=== PATIENT | female | born 1995 | race Caucasian/White ===

== ENCOUNTER → 2020-09-28 16:35 | Outpatient (CLI) | payer BC, SELFPAY ==
[2020-09-28 15:57] VITALS: BMI 31.4
[2020-09-28 17:12] LABS: Absolute Lymphocyte Count 2.09 X10^3/uL (0.83-4.51); Absolute Neutrophil Count 5.1 X10^3/uL (2.0-7.7); Basophil# 0.04 X10^3/uL; Basophil% 0.5 % (0-1); Eosinophil# 0.07 X10^3/uL; Eosinophils% 0.9 % (0-5); Hematocrit 44.2 % (37-47); Hemoglobin 14.8 g/dL (12.0-15.0); Lymphocyte # 2.09 X10^3/ul (4.0); Mean Corp Hgb Conc 33.5 g/dL (32-36); Mean Corpuscular Hgb 30.3 pg (27.0-32.0); Mean Corpuscular Volume 90.4 fL (81-99); Mean Platelet Vol. 11.6 fl (6.2-12.0); Monocyte# 0.45 X10^3/uL; Monocyte% 5.8 % (0-10); NRBC Flagged by Analyzer 0 % (0-5); Neutrophil # 5.07 X10^3/uL (2.7-7.7); Neutrophil % 65.5 % (47-70); Platelet Count 240 K/mm3 (150-450); RBC Distribution Width CV 11.8 % (11.6-14.6); RBC Distribution Width SD 39.1 fl (35.1-43.9); Red Blood Count 4.89 M/mm3 (4.2-5.4); White Blood Count 7.7 K/mm3 (4.4-11.0)
[2020-09-28 17:56] LABS: Anion Gap 6 (5-15); BUN 13 mg/dL (7-18); BUN/Creat Ratio 12.7 RATIO (10-20); Calcium,Total 9.7 mg/dL (8.5-10.1); Chloride 105 mmol/L (98-107); Creatinine, Serum 1.02 mg/dL (0.55-1.02); EST Glomerular Filtration Rate 69 mL/min (>60); Est Glom Filt Rate - Afr Amer 84 mL/min (>60); Glucose 99 mg/dL (74-106); Sodium Level 138 mmol/L (136-145); Thyroid Stim Hormone (TSH) 1.71 uIU/mL (0.358-3.74)
== END ==
PROVIDERS: Referring Provider Internal Medicine Cardiovascular Disease; Visit Provider Internal Medicine Cardiovascular Disease
DX: R00.2 Palpitations (principal)
CPT/HCPCS: 36415; 80048; 84443; 85025

== ENCOUNTER → 2020-10-04 14:45 | Outpatient (CLI) | payer BC, SELFPAY ==
[2020-09-28 15:57] VITALS: BMI 31.4
--- NOTE | 2020-10-04 14:46 | ECHOD_ITS ---
Version 2 Reason For Study: ARRHYTHMIA Procedure This was a 2D Doppler, Color Flow transthoracic echocardiogram. Exam performed in department. Left Ventricle Normal LV size. Left ventricular systolic function is normal. The estimated ejection fraction is 65 %. No regional wall motion abnormalities noted. Right Ventricle Normal RV size. Normal systolic function. Atria Normal left atrium. Normal right atrium. Mitral Valve Normal mitral valve. Tricuspid Valve Normal tricuspid valve. Aortic Valve Normal aortic valve. Trisinus/trileaflet aortic valve. Pulmonic Valve Normal pulmonic valve. Great Vessels Normal aortic root. The pulmonary artery is normal size. Normal inferior vena cava. Pericardium/Pleural No pericardial effusion. MMode/2D Measurements & Calculations LVIDd: 4.7 cm IVSd: 0.87 cm Ao root diam: 2.4 cm LVIDs: 3.0 cm LVPWd: 0.87 cm RVDd: 3.8 cm FS: 36.5 % LAV(MOD-bp): 45.4 ml LA A4 area: 16.6 cm2 LA dimension(2D): 3.4 cm LAV(MOD-bp) Indexed: 24.1 ml/m2 LAV(MOD-sp2): 42.5 ml LAV(MOD-sp4): 45.3 ml RA A4 area: 13.7 cm2 Time Measurements MV dec time: 0.20 sec Doppler Measurements & Calculations MV E max elie: 116.3 cm/sec Lat Peak E' Elie: 21.4 cm/sec Med Peak E' Elie: 17.2 cm/sec MV A max elie: 76.1 cm/sec E/E' lat: 5.4 E/E' med: 6.8 MV E/A: 1.5 Ao V2 max: 155.2 cm/sec LV V1 max: 144.8 cm/sec PA V2 max: 137.5 cm/sec Ao max P.6 mmHg LV V1 max P.4 mmHg Interpretation Summary Normal LV size. Left ventricular systolic function is normal. The estimated ejection fraction is 65 %. Structurally normal valves. Ordering Physician: Hermes Benitez Referring Physician: NO PCP Performed By: Greer Galan RDCS, RVT
== END ==
PROVIDERS: Referring Provider Internal Medicine Cardiovascular Disease; Visit Provider Internal Medicine Cardiovascular Disease
DX: R00.2 Palpitations (principal)
CPT/HCPCS: 93306

== ENCOUNTER 2021-09-11 17:24 | Outpatient (CLI) | payer BC, SELFPAY ==
--- NOTE | 2021-09-11 17:24 | MRI_ITS ---
STUDY: MRI RIGHT KNEE REASON FOR EXAM: Female, 26 years old. right anterior T lateral knee pain, unable to bear weight, trampoline injury TECHNIQUE: Standardized fat and water weighted pulse sequences were obtained in all 3 orthogonal planes. COMPARISON: X-ray of the right knee dated September 11, 2021 FINDINGS: Mild marrow edema/acute bony contusions are present at the anterior aspect of the lateral femoral condyle and posterior aspect of the lateral tibial plateau. The anterior cruciate ligament is completely torn. A small joint effusion is present, and mild to moderate subcutaneous edema is seen around the knee joint. Mild sprain injuries of several of the posterior upper calf muscles also demonstrated. Normal medial meniscus. Normal hyaline cartilage of the medial femorotibial compartment. Normal medial femoral condyle and tibial plateau. Normal medial collateral ligamentous complex (MCL). Normal distal semimembranosus, gracilis and semitendinosus tendons. Complex extensive tearing is seen in the mid to inner aspect of the posterior horn of lateral meniscus including the root insertion. Normal anterior horn and body of the lateral meniscus. Normal hyaline cartilage of the lateral femorotibial compartment. Normal lateral femoral condyle and tibial plateau. Normal proximal tibiofibular articulation. Normal lateral collateral (fibular) ligament. Normal popliteus tendon. Normal biceps femoris tendon. Normal posterior cruciate ligament (PCL). Normal congruent patellofemoral articulation. Normal hyaline cartilage of the patellofemoral compartment. Normal medial and lateral patellar retinaculum. Normal quadriceps tendon. Normal patellar tendon. Normal Hoffa''s fat pad. MRI/Lower Ext Joint Only (Routine) IMPRESSION: 1. Complete tear of the ACL 2. Complex extensive tearing is seen in the mid to inner aspect of the posterior horn of lateral meniscus including the root insertion. 3. Mild marrow edema/acute bony contusions are present at the anterior aspect of the lateral femoral condyle and posterior aspect of the lateral tibial plateau. 4. A small joint effusion is present, and mild to moderate subcutaneous edema is seen around the knee joint. 5. Mild sprain injuries of several of the posterior upper calf muscles also demonstrated. Electronically Signed: Reg Sebastian MD at 20:31 EST , Service support ,
== END 2021-09-11 23:59 | disposition short-term general hospital (02) ==
LOC: MRI 17:24
PROVIDERS: Visit Provider Orthopaedic Surgery
DX: S89.91XA Unspecified injury of right lower leg, initial encounter (principal); S83.519A Sprain of anterior cruciate ligament of unspecified knee, initial encounter
CPT/HCPCS: 73721

== ENCOUNTER 2021-09-29 14:24 | Outpatient (CLI) | payer BC, SELFPAY | END 2021-09-29 23:59 | disposition home or self-care (01) | PROVIDERS: Visit Provider Orthopaedic Surgery | DX: Z01.812 Encounter for preprocedural laboratory examination (principal); M23.91 Unspecified internal derangement of right knee | CPT/HCPCS: 87635; C9803; U0003; U0005 ==

== ENCOUNTER 2022-03-15 11:00 | Outpatient (RCR) | payer BC, SELFPAY ==
--- NOTE | 2021-09-19 14:53 | HP.PTEVAL_ITS ---
Patient's Visit Information ARSALAN BUSH is a 26 year old F referred to Physical Therapy by ERMELINDA TOWNSEND with a diagnosis of R ACL tear, lateral medial meniscus tear.. Date of Evaluation: 09/19/21 Physical Therapist: Vega Finley, DPT, OCS, CSCS - Visit Plan Frequency: 2-3x /Week Duration: 2-4 Weeks Plan: 2-3x/week x2-4 weeks. inhibitory massage to quad and HS. A/PROM to R knee and patellar mobs.Stretch HS and quad as able. NWB strengthening to HEP. Pt is now NWB R. Get ready for surgery 10/04. Use Vaso if swollena dn ice as needed. - Subjective R knee injury from trampoline park injury on 09/09/21. It buckled on her on a rebounding trampoline. Hurt and swelled up immediately. Will have surgery 10/04 with meniscal repairs and ACL repair with patellar tendon. Nees more ROM for surgery. Is NWB R with crutches. Not too painful at rest, Needs more ROM. Using crutches are fine. Two steps with railing and getting up and down them fine. trasnfers out of bed are painful. Sleeping is decent. Not too painful until she moves. immobllizer at night. Works at [employer]. Enjoys biking hiking and swimming when healthy. Exercises , ext adn flexion ROM. QS. Walking 3x/week is exercise when healthy - Pain R knee pain. Pain Intensity (Out of 10): 0 Pain Intensity Range: 0, 5 - Objective NWB R knee with brace on and crutches ambulating mod I into PT. Transfers bed and chair I helping R LE with UE. Dons and doffs brace I. - homans B. ankle aROM WFL and strength Df 5/5. Knee AROM R knee -4 to 60 supine and 70 in sitting, limited by pain and tension anterior knee. patella mobility slightly at deficit R vs L. SLR has 3 degree ext lag on R. Swelling is minimal on R LE and at knee joint. Tender to palpation R lateral joint line. - Balance/Special Test Scores Lower Extremity Functional Score: 7 - Goals Goal 1:: 0-130 AROM R knee without pain to be prepared for surgery Goal Time Frame: 2-4 Weeks Goal 2:: I appropriate HEP for strength and ROM Goal Time Frame: 2-4 Weeks - Rehabilitation Potential Physical Therapy Diagnosis: R knee ACL tear and meniscus injury with limited ROM needing to prepare for surgery. Rehabilitation Potential: Fair - Anticipated Interventions Patient/Client Instruction: Educate patient on: Condition, Plan of Care For the Purpose of:: To decrease pain, To increase ROM, To improve muscle performance and motor function Therapeutic Exercise to Include: Strength training, Flexibilty training, Passive ROM, Active ROM For the Purpose of:: To decrease pain, To increase ROM, To improve nutrient delivery to tissue, To improve muscle performance and motor function Manual Therapy Techniques to Include: Mobilization, Passive ROM, Soft tissue mobilization For the Purpose of:: To decrease pain, To increase ROM TENS: Yes Cryotherapy (ice pack, ice massage): Yes Vasopneumatic device: Yes For the Purpose of:: To decrease pain, To decrease swelling/inflammation, To increase ROM Thank you for the opportunity to evaluate your patient. For Medicare and Medicare HMO plans, please review the plan of care and approve it. It will need to be FAXED BACK to us at [phone] for Medicare purposes. For Medicare only, by signing this I certify the plan of care. Please let me know if there are questions or concerns regarding this plan of care. Physician Signature: Date:
--- NOTE | 2021-10-03 12:08 | HP.PTREVAL_ITS ---
ERMELINDA TOWNSEND, It has been my pleasure to treat ARSALAN BUSH over the last 5 visits for R ACL tear, lateral medial meniscus tear.. Please see the progress note below for an update on the physical therapy plan of care! Subjective: Hurts only to bend it. Has been doing NWB on crutches. Objective/Function: 0-91 ROM R knee after stretching today, limited by muscle spasm anterior pain, not really any other end feel. Walking NWB R with crutches I today. Overall doing well except for flexion ROM which is limited by muscle spasms and pain anteriorly seemingly something blocking her motion pain carty. Plan Plan: Reeval postsurgically as ordered. Likely on saturday next week, surgery is tomorrow. Balance/Gait/Functional tests - Balance/Special Test Scores Lower Extremity Functional Score: 7 Goals Goal 1:: 0-130 AROM R knee without pain to be prepared for surgery Goal Time Frame: 2-4 Weeks Goal Progress: 0-91 today. Goal 2:: I appropriate HEP for strength and ROM Goal Time Frame: 2-4 Weeks Goal Progress: Goal Met Anticipated Interventions Patient/Client Instruction: Educate patient on: Condition, Plan of Care For the Purpose of:: To decrease pain, To increase ROM, To improve muscle perfor zhang and motor function Therapeutic Exercise to Include: Strength training, Flexibilty training, Passive ROM, Active ROM For the Purpose of:: To decrease pain, To increase ROM, To improve nutrient delivery to tissue, To improve muscle performance and motor function Manual Therapy Techniques to Include: Mobilization, Passive ROM, Soft tissue mobilization For the Purpose of:: To decrease pain, To increase ROM TENS: Yes Cryotherapy (ice pack, ice massage): Yes Vasopneumatic device: Yes For the Purpose of:: To decrease pain, To decrease swelling/inflammation, To increase ROM Please do not hesitate to contact me at [phone] by phone or if you have questions or concerns regarding this new plan of care! Sincerely, Vega Finley, DPT, OCS, CSCS
--- NOTE | 2021-10-09 10:15 | HP.PTREVAL ---
ERMELINDA TOWNSEND, It has been my pleasure to treat ARSALAN BUSH over the last 6 visits for s/p R ACL repair and meniscal repair 10/05/21. Please see the progress note below for an update on the physical therapy plan of care! Subjective: Pt had ACL reconstruction and meniscal repair on 10/04/21. Pain has been constantly 6/10 over weekend, 4/10 at rest. Very bad first two days and was sick right after surgery. Got new script but forgot it. Is NWB x 4 weeks on crutches . Will see doctor in two weeks. is doing seated bag hang to get extension. Locked brace ambulation and seating. Can go up to 90 degrees NWB. got 120 in surgery of flexion. Objective/Function: Pt is painful upon arrival and miserable for the weekend. Walking NWB R brace locked in ext I. transfers I moving R LE with arms. Painful to try to bend or lift R LE. Swelling is not bad and near symmetrical at the joint line and smaller on R at calf bu 1/4 inch. AROM -8 to 32 degrees R knee with assist, muscle spasming limiting motion and painful. Ankle and Hip ROM WNL B. - homans. SLR abd able,. SLr flexion unable and needed mod A. patella R stiff vs L. Incisions dressed appropriately, dry and healing well. Overall patient looks good objectively outside of limited ROM and painful since surgery 5 days ago. Plan Plan: 3x/week for 6-8 weeks. Patellar mobs. AAROM/PROM to 90. NWB strength hip and knee per protocol from [facility] in protocol folder. Currently NWB with brace locked for mobility and at night and unlocked when sitting. Please do TENS until pain better than FES to quad, VASO if swelling increases and Ice as needed(pt has ice machine at home) Balance/Gait/Functional tests - Balance/Special Test Scores Lower Extremity Functional Score: 7 Goals Goal 1:: ST:0-90 AROM over 6 weeks per prptocol without pain Goal Time Frame: 4-6 Weeks Goal Progress: 0-91 today. Goal 2:: ST: patient painfree and sleeping well Goal Time Frame: 2-4 Weeks Goal Progress: Goal Met Goal 3:: LT: Walk when allowed without gait deficits in community Goal Time Frame: 8-12 Weeks Goal 4:: Steps reciprocally without rail Goal Time Frame: 8-12 Weeks Goal 5:: Patient feel 90% back to normal activites Goal Time Frame: 8-12 Weeks Goal 6:: I management of ex to continue progress on own. Goal Time Frame: 8-12 Weeks Anticipated Interventions Patient/Client Instruction: Educate patient on: Condition, Plan of Care For the Purpose of:: To decrease pain, To increase ROM, To improve muscle performance and motor function Therapeutic Exercise to Include: Strength training, Flexibilty training, Passive ROM, Active ROM For the Purpose of:: To decrease pain, To increase ROM, To improve nutrient delivery to tissue, To improve muscle performance and motor function Manual Therapy Techniques to Include: Mobilization, Passive ROM, Soft tissue mobilization For the Purpose of:: To decrease pain, To increase ROM Functional electric stimulation: Yes TENS: Yes Cryotherapy (ice pack, ice massage): Yes Vasopneumatic device: Yes For the Purpose of:: To decrease pain, To decrease swelling/inflammation, To increase ROM Please do not hesitate to contact me at [phone] by phone or if you have questions or concerns regarding this new plan of care! Sincerely, Vega Finley, DPT, OCS, CSCS
--- NOTE | 2021-11-03 12:44 | HP.PTREVAL ---
ERMELINDA TOWNSEND, It has been my pleasure to treat ARSALAN BUSH over the last 17 visits for s/p R ACL repair and meniscal repair 10/05/21. Please see the progress note below for an update on the physical therapy plan of care! Subjective: Doing OK, very busy yesterday and stuck sitting at work a lot of the day. Objective/Function: 0-88 AROM and 92 PROM after session, getting a quad contrasction but still lag with SLR by about 3 degrees. NWB ambulation Plan Plan: progress stadn ex to HEP, continue ROM ext and NWB quad strength to [place]. still NWB ambulation and appropriate to continue 4 more weeks toward goals. Fair prognosis Balance/Gait/Functional tests - Balance/Special Test Scores Lower Extremity Functional Score: 7 Goals Goal 1:: ST:0-90 AROM over 6 weeks per prptocol without pain Goal Time Frame: 4-6 Weeks Goal Progress: Goal Met Goal 2:: ST: patient painfree and sleeping well Goal Time Frame: 2-4 Weeks Goal Progress: approp. Goal 3:: LT: Walk when allowed without gait deficits in community Goal Time Frame: 8-12 Weeks Goal 4:: Steps reciprocally without rail Goal Time Frame: 8-12 Weeks Goal 5:: Patient feel 90% back to normal activites Goal Time Frame: 8-12 Weeks Goal 6:: I management of ex to continue progress on own. Goal Time Frame: 8-12 Weeks Anticipated Interventions Patient/Client Instruction: Educate patient on: Condition, Plan of Care For the Purpose of:: To decrease pain, To increase ROM, To improve muscle performance and motor function Therapeutic Exercise to Include: Strength training, Flexibilty training, Passive ROM, Active ROM For the Purpose of:: To decrease pain, To increase ROM, To improve nutrient delivery to tissue, To improve muscle performance and motor function Manual Therapy Techniques to Include: Mobilization, Passive ROM, Soft tissue mobilization For the Purpose of:: To decrease pain, To increase ROM Functional electric stimulation: Yes TENS: Yes Cryotherapy (ice pack, ice massage): Yes Vasopneumatic device: Yes For the Purpose of:: To decrease pain, To decrease swelling/inflammation, To increase ROM Please do not hesitate to contact me at [phone] by phone or if you have questions or concerns regarding this new plan of care! Sincerely, Vega Finley, DPT, OCS, CSCS
--- NOTE | 2021-12-01 13:15 | HP.PTREVAL ---
ERMELINDA TOWNSEND, It has been my pleasure to treat ARSALAN BUSH over the last 29 visits for s/p R ACL repair and meniscal repair 10/05/21. Please see the progress note below for an update on the physical therapy plan of care! Subjective: Saw doctor who was not impressed with flexion or extension. Will f/u in two weeks. And possible manip. Will get a dynasplint and doctor is ordering. Wants therapy to continue 3x/week for 4 weeks. Objective/Function: 0-108 AROM today after session. Full knee extension upon standing immediately today but default was to keep it bent until cued. Lacks knee flexion at swing until cued. Steps are reciprocal up and down when cued with rails, obvious weakness coming down with R but not a lot of pain. Overall doing much better with function, slowly improving ROM and stiffens up quickly, needs more ROM and to be stronger. Plan Plan: 3x/week for 4-6 weeks for. 1. Pt to do strength at home and can ;rogress it verbally. 2. Focus on methods to increase knee ext and flexion ROM and looseness. rollout quad and HS, patellar mobs, PROM, quad and HS stretching, exercises for ROM flexion and extension. Good prognosis for continued improvement. Balance/Gait/Functional tests - Balance/Special Test Scores Lower Extremity Functional Score: 33 Goals Goal 1:: 0-125 aROM to help normalize healing process. Goal Time Frame: 2-4 Weeks Goal Progress: NEW GOAL Goal 2:: ST: patient painfree and sleeping well Goal Time Frame: 2-4 Weeks Goal Progress: approp. Goal 3:: LT: Walk when allowed without gait deficits in community Goal Time Frame: 8-12 Weeks Goal Progress: Progressing, approp Goal 4:: Steps reciprocally without rail Goal Time Frame: 8-12 Weeks Goal Progress: progressing, needs rail Goal 5:: Patient feel 90% back to normal activites Goal Time Frame: 8-12 Weeks Goal Progress: Progressing Goal 6:: I management of ex to continue progress on own. Goal Time Frame: 8-12 Weeks Goal Progress: needs help with ROM Anticipated Interventions Patient/Client Instruction: Educate patient on: Condition, Plan of Care For the Purpose of:: To decrease pain, To increase ROM, To improve muscle performance and motor function Therapeutic Exercise to Include: Strength training, Flexibilty training, Passive ROM, Active ROM For the Purpose of:: To decrease pain, To increase ROM, To improve nutrient delivery to tissue, To improve muscle performance and motor function Manual Therapy Techniques to Include: Mobilization, Passive ROM, Soft tissue mobilization For the Purpose of:: To decrease pain, To increase ROM Functional electric stimulation: Yes TENS: Yes Cryotherapy (ice pack, ice massage): Yes Vasopneumatic device: Yes For the Purpose of:: To decrease pain, To decrease swelling/inflammation, To increase ROM Please do not hesitate to contact me at [phone] by phone or if you have questions or concerns regarding this new plan of care! Sincerely, Vega Finley, DPT, OCS, CSCS
--- NOTE | 2022-01-01 13:48 | HP.PTREVAL ---
ERMELINDA TOWNSEND, It has been my pleasure to treat ARSALAN BUSH over the last 40 visits for s/p R ACL repair and meniscal repair 10/05/21. Please see the progress note below for an update on the physical therapy plan of care! Subjective: Doing well. doctor happy and no [id number] needed. No pain today. Worked outside and even on uneven surfaces over the3 weekend. doc wants 4 more weeks of rOM and then done. Objective/Function: PROM. Walking well today, after session 0-124 R and left is to 136. Lunging shows weakness R quad and awkward but able with Hand rail assist. Steps reciprocal without rails. Overall doing well back to mostly normal ADLs. Wants to work toward four wheeling, hiking, jogging and video mworkout(burpees, mountain climbers etc). LEFS is therapist graded based on patient report. Plan Plan: 2x/week for 4 week for continued manual until ROM is full. functional progression with jogging as tolerated, side shuiffle, gentl plyo(shuttle) and functional burpees, mountain climbers, step aerobics etc for confidence. NEW GOAL4 weeks). 1. Gain confidence to ride 4 goode, jog gently and do video workout I without pain. Balance/Gait/Functional tests - Balance/Special Test Scores Lower Extremity Functional Score: 56 Goals Goal 1:: 0-125 aROM to help normalize healing process. Goal Time Frame: 2-4 Weeks Goal Progress: near met Goal 2:: ST: patient painfree and sleeping well Goal Time Frame: 2-4 Weeks Goal Progress: Goal Met Goal 3:: LT: Walk when allowed without gait deficits in community Goal Time Frame: 8-12 Weeks Goal Progress: Goal Met Goal 4:: Steps reciprocally without rail Goal Time Frame: 8-12 Weeks Goal Progress: Goal Met Goal 5:: Patient feel 90% back to normal activites Goal Time Frame: 8-12 Weeks Goal Progress: 65% approp Goal 6:: I management of ex to continue progress on own. Goal Time Frame: 8-12 Weeks Goal Progress: Goal Met Anticipated Interventions Patient/Client Instruction: Educate patient on: Condition, Plan of Care For the Purpose of:: To decrease pain, To increase ROM, To improve muscle performance and motor function Therapeutic Exercise to Include: Strength training, Flexibilty training, Passive ROM, Active ROM For the Purpose of:: To decrease pain, To increase ROM, To improve nutrient delivery to tissue, To improve muscle performance and motor function Manual Therapy Techniques to Include: Mobilization, Passive ROM, Soft tissue mobilization For the Purpose of:: To decrease pain, To increase ROM Functional electric stimulation: Yes TENS: Yes Cryotherapy (ice pack, ice massage): Yes Vasopneumatic device: Yes For the Purpose of:: To decrease pain, To decrease swelling/inflammation, To increase ROM Please do not hesitate to contact me at [phone] by phone or if you have questions or concerns regarding this new plan of care! Sincerely, Vega Finley, DPT, OCS, CSCS
--- NOTE | 2022-01-29 14:02 | HP.PTREVAL_ITS ---
ERMELINDA TOWNSEND, It has been my pleasure to treat ARSALAN BUSH over the last 48 visits for s/p R ACL repair and meniscal repair 10/05/21. Please see the progress note below for an update on the physical therapy plan of care! Subjective: Sore and stiff after being on feet all weekend. Otherwise has been good. Riding 4 goode gently, working out in yard. Doing HEP regularly. Upper level activities and ROM still need work but doing well otherwise. Objective/Function: 30 # R quad strength vs 60# L. HS strength 39#R and 65#L. AROM 0-121 today but is sore and stiff today after being on feet much of weekend, has gotten to 125 AROM in past. patella still slightly stiff R vs L inferior and superior glides. Full extension is pretty easy to achieve, Still weak in quad but working on this with HEP and in gym 4-5x/week. Steps are antalgic today but typically have been good and reciprocal and only needing railing for confidence. has been jogging short distances in therapy but labored and hesitant with R LE WB with activities more aggressive than walking/steps. Can side shuffle and caarioca slowly and gaining confidence in these movements. SLH still not funcitonal on R, double leg hop looks more symmetrical. overall good improvement on ROM , strength R quad still lacking and plyo and agility/jogging movements till hard for patient and require more strength which she is working on. Plan Plan: Weekly x6 weeks to continue ROM/manual and progress agility/plyo as appropriate for patient. She will continue strengthening I on own and ask questions if concerns with these. Goals appropriate and fair prognosis for slow improvement Balance/Gait/Functional tests - Balance/Special Test Scores Lower Extremity Functional Score: 54 Goals Goal 1:: 0-125 aROM to help normalize healing process. Goal Time Frame: 2-4 Weeks Goal Progress: Goal Met Goal 2:: 1. Gain confidence to ride 4 goode, jog gently and do video workout I without pain. Goal Time Frame: 4-6 Weeks Goal Progress: barely started these., ap Goal 3:: 70/80 LEFS Goal Time Frame: 4-6 Weeks Goal Progress: NEW GOAL Goal 4:: 50+ quad strength R and 60 HS strength R to hand dyno test. Goal Time Frame: 4-6 Weeks Goal Progress: NEW GOAL Goal 5:: Patient feel 90% back to normal activites Goal Time Frame: 8-12 Weeks Goal Progress: 70% Goal 6:: jog without hesitation or antalgia Goal Time Frame: 4-6 Weeks Goal Progress: NEW GOAL Anticipated Interventions Patient/Client Instruction: Educate patient on: Condition, Plan of Care For the Purpose of:: To decrease pain, To increase ROM, To improve muscle performance and motor function Therapeutic Exercise to Include: Strength training, Flexibilty training, Passive ROM, Active ROM For the Purpose of:: To decrease pain, To increase ROM, To improve nutrient delivery to tissue, To improve muscle performance and motor function Manual Therapy Techniques to Include: Mobilization, Passive ROM, Soft tissue mobilization For the Purpose of:: To decrease pain, To increase ROM Functional electric stimulation: Yes TENS: Yes Cryotherapy (ice pack, ice massage): Yes Vasopneumatic device: Yes For the Purpose of:: To decrease pain, To decrease swelling/inflammation, To increase ROM Please do not hesitate to contact me at [phone] by phone or Fax: if you have questions or concerns regarding this new plan of care! Sincerely, Vega Finley, DPT, OCS, CSCS
--- NOTE | 2022-03-08 12:56 | HP.PTREVAL ---
ERMELINDA TOWNSEND, It has been my pleasure to treat ARSALAN BUSH over the last 54 visits for s/p R ACL repair and meniscal repair 10/05/21. Please see the progress note below for an update on the physical therapy plan of care! Subjective: patient says that patella is getting sore with LAQ and the day after. otherwise doing well and getting stronger, still needs help with plyo, agility progression, ROM still feels better in WB after manual and PROM stooping. Objective/Function: 0-129 AROM R knee, o-131 AROM prior to manual then 133 after. L knee AROM 0-135. Stooping much more symmetrical than a month ago but still some discomfort and hesitation to R WB. hesitant to bend knee due to poor confidence in R quad. Improving strength but slow. Appropriate for new goals and fair prognosis. Plan Plan: Continue weekly x 6 weeks to end March to ensure adn progress quad strength without soreness. progress plyo and agility to tolerance adn ensure quad use. Manual each session until stoop is symmetrical. Balance/Gait/Functional tests - Balance/Special Test Scores Lower Extremity Functional Score: 71 Goals Goal 1:: Agility drills with R knee flexion without VC and single leg jump R clearing floor. Stoop without asymmetry Goal Time Frame: 4-6 Weeks Goal Progress: NEW GOAL Goal 2:: 1. Gain confidence to ride 4 goode, jog gently and do video workout I without pain. Goal Time Frame: 4-6 Weeks Goal Progress: Goal Met Goal 3:: 70/80 LEFS Goal Time Frame: 4-6 Weeks Goal Progress: Goal Met Goal 4:: 50+ quad strength R and 60 HS strength R to hand dyno test. Goal Time Frame: 4-6 Weeks Goal Progress: Progressing Goal 5:: Patient feel 90% back to normal activites Goal Time Frame: 8-12 Weeks Goal Progress: 75 Goal 6:: jog without hesitation or antalgia Goal Time Frame: 4-6 Weeks Goal Progress: Goal Met Anticipated Interventions Patient/Client Instruction: Educate patient on: Condition, Plan of Care For the Purpose of:: To decrease pain, To increase ROM, To improve muscle performance and motor function Therapeutic Exercise to Include: Strength training, Flexibilty training, Passive ROM, Active ROM For the Purpose of:: To decrease pain, To increase ROM, To improve nutrient delivery to tissue, To improve muscle performance and motor function Manual Therapy Techniques to Include: Mobilization, Passive ROM, Soft tissue mobilization For the Purpose of:: To decrease pain, To increase ROM Functional electric stimulation: Yes TENS: Yes Cryotherapy (ice pack, ice massage): Yes Vasopneumatic device: Yes For the Purpose of:: To decrease pain, To decrease swelling/inflammation, To increase ROM Please do not hesitate to contact me at [phone] by phone or if you have questions or concerns regarding this new plan of care! Sincerely, Vega Finley, DPT, OCS, CSCS
== END 2022-03-15 19:00 | disposition home or self-care (01) ==
LOC: PT 11:00
DX: Z47.89 Encounter for other orthopedic aftercare (principal); S83.511D Sprain of anterior cruciate ligament of right knee, subsequent encounter; S83.281D Other tear of lateral meniscus, current injury, right knee, subsequent encounter; S83.241D Other tear of medial meniscus, current injury, right knee, subsequent encounter; X58.XXXD Exposure to other specified factors, subsequent encounter; M23.91 Unspecified internal derangement of right knee
CPT/HCPCS: 97014; 97016; 97110; 97140; 97161; 97164; G0283

== ENCOUNTER 2022-06-29 12:00 | Outpatient (RCR) | payer BC, SELFPAY ==
--- NOTE | 2022-04-05 12:45 | HP.PTREVAL_ITS ---
ERMELINDA TOWNSEND MD, It has been my pleasure to treat ARSALAN BUSH over the last 58 visits for s/p R ACLrepair and meniscal repair 10/05/21. Please see the progress note below for an update on the physical therapy plan of care! Subjective: No discomfort today. Next is doctor appointment. Doing well functionally, intermittent c/o discomfort and popping under R knee cap is her main concern. Stooping getting easier slowly. Objective/Function: much better SLH today. double leg hop symmetry is good at takeoff but lans on L foot every time even wiht VC. Prt appropriately lacks confidence in R LE but it is getting stronger as evidence with SL hop improvements. Walking well. Limps on jog when leg is tired. Funciton overall is very good outside of very high level activities like hopping and cuttiing/sprinting which has not started. overall concerns are popping and intermittent discomfort with patella in R, stooping still painful, quad taking longeer to strengthen then expected. Plan Plan: [facility] next week[facility] and has 2 more therapy visits scheduled weekly for progressions. Goals Goal 1:: Agility drills with R Knee flexion without VC and single leg jump R clearing floor, stoop without asymmetry Goal Time Frame: 4-6 Weeks Goal 2:: 50+ quad strength R and 60 HS strength to hand dyno test Goal Time Frame: 4-6 Weeks Goal 3:: Patient feel 90% back to normal activity Goal Time Frame: 4-6 Weeks Anticipated Interventions Patient/Client Instruction: Educate patient on: Condition For the Purpose of:: To improve muscle performance and motor function, To increase tolerance to activity/condition/position Therapeutic Exercise to Include: Strength training, Endurance training, Agility training, Flexibilty training, Passive ROM, Active ROM For the Purpose of:: To decrease pain, To increase ROM, To improve muscle performance and motor function, To increase tolerance to activity/condition/position, To improve ability of physical actions for home/community/work/leisure Manual Therapy Techniques to Include: Mobilization, Soft tissue mobilization For the Purpose of:: To increase ROM Please do not hesitate to contact me at [phone] by phone or if you have questions or concerns regarding this new plan of care! Sincerely, Vega Tushar, DPT, OCS, CSCS
--- NOTE | 2022-04-19 12:57 | HP.PTEVAL ---
Patient's Visit Information ARSALAN BUSH is a 27 year old F referred to Physical Therapy by ERMELINDA TOWNSEND MD with a diagnosis of s/p R ACLrepair and meniscal repair 10/05/21. Date of Evaluation: Physical Therapist: Vega Finley, DPT, OCS, CSCS - Visit Plan Plan: every two weeks to progress quad exedrcises as needed. Pt back to doctor in [facility]. Check quad and HS strength with dynomomoeter. Progress quad strength if needed. - Goals Goal 1:: Agility drills with R Knee flexion without VC and single leg jump R clearing floor, stoop without asymmetry Goal Time Frame: 4-6 Weeks Goal 2:: 50+ quad strength R and 60 HS strength to hand dyno test Goal Time Frame: 4-6 Weeks Goal 3:: Patient feel 90% back to normal activity Goal Time Frame: 4-6 Weeks - Anticipated Interventions Patient/Client Instruction: Educate patient on: Condition For the Purpose of:: To improve muscle performance and motor function, To increase tolerance to activity/condition/position Therapeutic Exercise to Include: Strength training, Endurance training, Agility training, Flexibilty training, Passive ROM, Active ROM For the Purpose of:: To decrease pain, To increase ROM, To improve muscle performance and motor function, To increase tolerance to activity/condition/position, To improve ability of physical actions for home/community/work/leisure Manual Therapy Techniques to Include: Mobilization, Soft tissue mobilization For the Purpose of:: To increase ROM Thank you for the opportunity to evaluate your patient. For Medicare and Medicare HMO plans, please review the plan of care and approve it. It will need to be FAXED BACK to us at [phone] for Medicare purposes. For Medicare only, by signing this I certify the plan of care. Please let me know if there are questions or concerns regarding this plan of care. Physician Signature: Date:
--- NOTE | 2022-06-29 12:28 | HP.PTDCSUM_ITS ---
It has been my pleasure to treat ARSALAN BUSH referred by ERMELINDA TOWNSEND MD, with the diagnosis of s/p R ACLrepair and meniscal repair 10/05/21 for a total of 64 visit(s). Discharge Date: Please see the following information for a summary of their discharge status. Subjective: Has been very busy and less workout over the last week. pain no different whether working out or not. Sometimes cannot straighten knee in sitting wihtou pain and other days not a problem. Still much weaker on R quad especially moid range. Still avoids it with squat and hard to jump single leg. Can jog but limited R LE strength and confidence. Saw PA and offered antiinflammatories but no indication what pain may be from. Will go to [place] for vacation next couple weeks then see surgeon [id number] returning. % Improvement: 75 Objective/Function: aROM 0-140 and symmetircal with opposite side outside of full flexion WB discomfort. Painful arc of resisted quad between 20 and 40 degrees flexed. strength quad 35# at 0 ext and 90 flexion but only 18 at 25 flexion. HS strength 65#. girth is 27 R and 27.5 L at 6 inch above quad. B 17 inches at joint line. Walks normal. Jogs avoiding flexing R knee but I. squat and double leg hop avoids R WB obviously. SLH R holding on is difficult and tends to just use ankle, unable to get air without holding on. L hop is good. Overall, pt is not coming along as would expect despite working hard at strengthening. ROM took a long time to return and strength is ever so slowly improving in quad but still very painful at 25 degree flexion. Recommend patient to surgeon to see if there could be a reason for this as it is not a normal finding. Goal 1:: Agility drills with R Knee flexion without VC and single leg jump R clearing floor, stoop without asymmetry Goal Progress: Goal Met Goal 2:: 50+ quad strength R and 60 HS strength to hand dyno test Goal Progress: Not Progressing Goal 3:: Patient feel 90% back to normal activity Goal Progress: Not Progressing Plan: d/c, pt to see surgeon in a few weeks and should be sent back if specific instructions for other PT, otherwise will continue with strengthening progression. If there are questions or concerns regarding this patient's physical therapy, please feel free to call me at [phone]. Thank you for the referral of this patient. Sincerely, Vega Finley, DPT, OCS, CSCS
== END 2022-06-29 13:32 | disposition home or self-care (01) ==
LOC: PT 12:00
PROVIDERS: Referring Provider Orthopaedic Surgery; Visit Provider Orthopaedic Surgery
DX: S83.511D Sprain of anterior cruciate ligament of right knee, subsequent encounter; S83.281D Other tear of lateral meniscus, current injury, right knee, subsequent encounter; S83.241D Other tear of medial meniscus, current injury, right knee, subsequent encounter; M23.91 Unspecified internal derangement of right knee; X58.XXXD Exposure to other specified factors, subsequent encounter
CPT/HCPCS: 97110; 97164; 97530

== ENCOUNTER 2022-12-20 12:00 | Outpatient (RCR) | payer BC, SELFPAY ==
--- NOTE | 2022-10-19 13:51 | HP.PTEVAL ---
Patient's Visit Information ARSALAN BUSH is a 27 year old F referred to Physical Therapy by SEA DURANT with a diagnosis of s/p r knee scope 10/17/22. Date of Evaluation: 10/19/22 Physical Therapist: Vega Finley, DPT, OCS, CSCS - Visit Plan Frequency: 2x /Week Duration: 4-6 Weeks Plan: 2x/week for 4-6 weeks for. 1. Ensure patellar mobs and knee extension ROM, progression of knee flexion and mobs and stretching, quad and HS stretching. 2. WB strength when allowed of L LE and core. return to gait and function. 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 - Subjective R knee clean out, cyclops lesion and repair lat meniscus , cauterized cyclops. that was two days ago 10/17/22. Back to work today. Swollen and sore today. Crutches PWB for the next week and then discontinue. Nathaniel wrap. Pain with tylenol and ibuprofen 3/10 at rest. Sleep OK last night. Basic ADLs are OK. pain never went away after ACL and was losing extension. Could not 4 wheel without pain. Doing prone knee hangs, QS and 4 way SLR. - Pain R knee pain. Pain Intensity (Out of 10): 3 Pain Intensity Range: 3, 6 - Objective L knee wrapped in nathaniel bandage and swollen. Hard to gauge patellar movement due to swelling. Expected swelling at this time 2 days out. L knee AROM -2 ext to 98 flexion. 5 degree ext lag with SLR L. R knee 0-130 and 0 ext lag. hip strength flexion SLR 3, abd 4-, ext 4- on L. hip ROM WFL B PROM. ankle strong 5/5 B in all direc tions. Has sensation to light touch in L LE. Walking with B crutches PWB L easily adn I. Trasnfers I bed and chair. Single crutch walking not confident in leg and unable today. 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 - Balance/Special Test Scores Lower Extremity Functional Score: 33 - Goals Goal 1:: 0-130 aROM L knee without pain and 0 ext lag SLR Goal Time Frame: 4-6 Weeks Goal 2:: Walk community without pain or deficits Goal Time Frame: 4-6 Weeks Goal 3:: steps recirpocally without rail Goal Time Frame: 4-6 Weeks Goal 4:: LEFS score 70 Goal Time Frame: 4-6 Weeks Goal 5:: Pt feel 95% back to normal including riding 4 goode. Goal Time Frame: 4-6 Weeks - Rehabilitation Potential Physical Therapy Diagnosis: weakness and limited mobility after recent surgery Rehabilitation Potential: Good - Anticipated Interventions Patient/Client Instruction: Educate patient on: Condition, Plan of Care For the Purpose of:: To decrease pain, To increase ROM, To improve nutrient delivery to tissue, To improve muscle performance and motor function, To increase tolerance to activity/condition/position, To improve ability of physical actions for home/community/work/leisure Therapeutic Exercise to Include: Strength training, Flexibilty training, Gait and locomotor training, Passive ROM, Active ROM For the Purpose of:: To decrease pain, To decrease swelling/inflammation, To increase ROM, To improve nutrient delivery to tissue, To improve muscle performance and motor function, To increase tolerance to activity/condition/position, To improve ability of physical actions for home/community/work/leisure Manual Therapy Techniques to Include: Mobilization, Passive ROM, Soft tissue mobilization For the Purpose of:: To decrease pain, To increase ROM, To improve nutrient delivery to tissue, To improve muscle performance and motor function, To increase tolerance to activity/condition/position, To improve ability of physical actions for home/community/work/leisure Cryotherapy (ice pack, ice massage): Yes Vasopneumatic device: Yes For the Purpose of:: To decrease pain, To decrease swelling/inflammation Thank you for the opportunity to evaluate your patient. For Medicare and Medicare HMO plans, please review the plan of care and approve it. It will need to be FAXED BACK to us at [phone] for Medicare purposes. For Medicare only, by signing this I certify the plan of care. Please let me know if there are questions or concerns regarding this plan of care. Physician Signature: Date:
--- NOTE | 2022-12-20 12:28 | HP.PTREVAL_ITS ---
SEA DURANT, It has been my pleasure to treat ARSALAN BUSH over the last 9 visits for s/p r knee scope 10/17/22. Please see the progress note below for an update on the physical therapy plan of care! Subjective: To doctor in 2 weeks. Knee getting stronger slowly. Not quickly. Working at it 5x/week gym or home. Pain is not an issue much of time. Using s marcela at home at times. Carrying laundry up steps is not running, has to be careful. Sleep is OK. Riding 4 wheelers this weekend. Objective/Function: full AROM and PROM R knee 0-138 and symmetrical to other side, very tight at end range flexion with weight through it but this is expected with her history. hip and HS strength is solid. R quad stregnth is good at full extension and 40-90 flexion but has an arc between 20 and 40 where it is very painful open chain and inhibiting muscle contraction, hard to even get 10 # and painful open chain. Closed chain is better on leg press but unable to control body wiehgt on steps descending or concentric step up through that range. This pain happens with exercises and she does not seem to be able to overcome this. She does not get this pain much outside of ex but does compensate throwing self up steps with L leg when using r and poor eccentric lowering on steps. Trasnfers and gait are normal. Overall strength progress is slow, still dysfuncitonal quad between 20 and 40 flexion, otherwise doing well. LEFS from subjective today. Plan Plan: Pt to visit doctor in two weeks. She is I with quad strength and will contact us after doctor visit if needs or wants continued therapy. Balance/Gait/Functional tests - Balance/Special Test Scores Lower Extremity Functional Score: 58 Goals Goal 1:: 0-130 aROM L knee without pain and 0 ext lag SLR Goal Time Frame: 4-6 Weeks Goal Progress: Goal Met Goal 2:: Walk community without pain or deficits Goal Time Frame: 4-6 Weeks Goal Progress: Goal Met Goal 3:: steps recirpocally without rail Goal Time Frame: 4-6 Weeks Goal Progress: Not Progressing Goal 4:: LEFS score 70 Goal Time Frame: 4-6 Weeks Goal 5:: Pt feel 95% back to normal including riding 4 goode. Goal Time Frame: 4-6 Weeks Goal Progress: 60% Anticipated Interventions Patient/Client Instruction: Educate patient on: Condition, Plan of Care For the Purpose of:: To decrease pain, To increase ROM, To improve nutrient delivery to tissue, To improve muscle performance and motor function, To increase tolerance to activity/condition/position, To improve ability of physical actions for home/community/work/leisure Therapeutic Exercise to Include: Strength training, Flexibilty training, Gait and locomotor training, Passive ROM, Active ROM For the Purpose of:: To decrease pain, To decrease swelling/inflammation, To increase ROM, To improve nutrient delivery to tissue, To improve muscle performance and motor function, To increase tolerance to activity/condition/position, To improve ability of physical actions for daryl e/community/work/leisure Manual Therapy Techniques to Include: Mobilization, Passive ROM, Soft tissue mobilization For the Purpose of:: To decrease pain, To increase ROM, To improve nutrient delivery to tissue, To improve muscle performance and motor function, To increase tolerance to activity/condition/position, To improve ability of physical actions for home/community/work/leisure Cryotherapy (ice pack, ice massage): Yes Vasopneumatic device: Yes For the Purpose of:: To decrease pain, To decrease swelling/inflammation Please do not hesitate to contact me at [phone] by phone or if you have questions or concerns regarding this new plan of care! Sincerely, Vega Finley, DPT, OCS, CSCS
--- NOTE | 2023-02-25 14:14 | HP.PTDCNRP_ITS ---
Patient Information Patient Information: ARSALAN BUSH was seen in my office for initial evaluation on 10/19/22. The following Plan of Care was established for this patient: POC Established Initial Frequency: 2x /Week Initial Duration: 4-6 Weeks Anticipated Interventions Patient/Client Instruction: Educate patient on: Condition and Plan of Care For the Purpose of:: To decrease pain, To increase ROM, To improve nutrient delivery to tissue, To improve muscle performance and motor function, To increase tolerance to activity/condition/position and To improve ability of phys ical actions for home/community/work/leisure Therapeutic Exercise to Include: Strength training, Flexibilty training, Gait and locomotor training, Passive ROM and Active ROM For the Purpose of:: To decrease pain, To decrease swelling/inflammation, To increase ROM, To improve nutrient delivery to tissue, To improve muscle performance and motor function, To increase tolerance to activity/condition/position and To improve ability of physical actions for home/community/work/leisure Manual Therapy Techniques to Include: Mobilization, Passive ROM and Soft tissue mobilization For the Purpose of:: To decrease pain, To increase ROM, To improve nutrient delivery to tissue, To improve muscle performance and motor function, To increase tolerance to activity/condition/position and To improve ability of physical actions for home/community/work/leisure Cryotherapy (ice pack, ice massage): Yes Vasopneumatic device: Yes For the Purpose of:: To decrease pain and To decrease swelling/inflammation Last Seen Last Seen: This patient was last seen in our office 12/20/22. Pertinent comments regarding their Physical therapy will appear below: Pt seen 9 visits of POC and was 60% better but still higher in pain and weaker than we like. At that point, she was I with strengthening. she was to f/u with surgeon and call if she needed to return for anything else. It has been over two months and I will discontinue her from my care. At this point I will be discontinuing this patient from physical therapy. I would be happy to see this patient again in the future if found appropriate by the physician. Thank you! Vega Finley, DPT, OCS, CSCS Balance/Gait/Functional tests Balance/Special Test Scores Lower Extremity Functional Score: 58
== END 2022-12-20 19:00 | disposition home or self-care (01) ==
LOC: PT 12:00
DX: Z47.89 Encounter for other orthopedic aftercare (principal)
CPT/HCPCS: 97110; 97140; 97161; 97164

== ENCOUNTER → 2023-02-06 | Outpatient (CLI) | payer BC, SELFPAY ==
[2023-02-06 10:49] LABS: Hemoglobin 14.8 g/dL (12.0-15.0); Mean Corp Hgb Conc 33.6 g/dL (32-36); Mean Corpuscular Hgb 30.7 pg (27.0-32.0); Mean Corpuscular Volume 91.3 fL (81-99); Platelet Count 235 K/mm3 (150-450); RBC Distribution Width SD 39.7 fl (35.1-43.9); Red Blood Count 4.82 M/mm3 (4.2-5.4)
[2023-02-06 11:18] LABS: AST(SGOT) 15 U/L (15-37); Alanine Aminotransfer ALT/SGPT 24 U/L (13-56); Albumin, Serum 3.7 g/dL (3.2-5.0); Alkaline Phosphatase 57 U/L (45-117); Anion Gap 5 (5-15); BUN 13 mg/dL (7-18); BUN/Creat Ratio 15.2 RATIO (10-20); Chloride 108 mmol/L (98-107); Cholesterol 278 mg/dL (200); Creatinine, Serum 0.85 mg/dL (0.55-1.02); EST Glomerular Filtration Rate 84 mL/min (>60); Est Glom Filt Rate - Afr Amer 101 mL/min (>60); Globulin 3.5 g/dL (2.2-4.2); Glucose 90 mg/dL (74-106); High Density Lipoprotein 48 mg/dL; Magnesium 2.3 mg/dL (1.6-2.6); Potassium 3.6 mmol/L (3.5-5.1); Protein, Total 7.2 g/dL (6.4-8.2); Sodium Level 138 mmol/L (136-145); Thyroid Stim Hormone (TSH) 2.44 uIU/mL (0.358-3.74); Triglycerides 145 mg/dL; Very Low Density Lipoprotein 29 mg/dL (5-40)
== END | disposition home or self-care (01) ==
PROVIDERS: Referring Provider Internal Medicine Cardiovascular Disease; Visit Provider Internal Medicine Cardiovascular Disease
DX: R42 Dizziness and giddiness (principal); R00.2 Palpitations; R07.89 Other chest pain; R06.02 Shortness of breath; R53.83 Other fatigue; E78.5 Hyperlipidemia, unspecified
CPT/HCPCS: 36415; 80048; 80061; 80076; 83735; 84443; 85027

== ENCOUNTER 2023-07-20 22:25 | Emergency (ER) | payer BC, SELFPAY ==
[2023-07-20 22:26] VITALS: BP 186/110; PULSE 122; RESP 16; TEMP 36.6; O2SAT 99; BMI 36.0
--- NOTE | 2023-07-20 22:48 | EKG12_ITS ---
Test Reason : DYSRHYTHMIA Blood Pressure : / mmHG Vent. Rate : 092 BPM Atrial Rate : 092 BPM P-R Int : 188 ms QRS Dur : 080 ms QT Int : 364 ms P-R-T Axes : 047 039 012 degrees QTc Int : 450 ms Normal sinus rhythm Possible Left atrial enlargement Borderline ECG Confirmed by JACKI BELL, CHANCE ([id number]), copy editor LORENZO EUGENE ([id number]) on 07/22/2023 10:10:25 AM Referred By: BB Confirmed By:CHANCE ECHEVERRIA MD
--- NOTE | 2023-07-20 22:49 | EDS_ITS ---
HPI History of Present Illness Chief Complaint: Chest Pain Informant: patient Narrative Narrative: 28-year-old female has been having episodes of nonpleuritic chest discomfort that feels like pressure just left of sternum for several weeks. She had a 5- minute episode just prior to coming here tonight, she has tried no home remedies. She has had palpitations with some of these were feels like her heart is racing. She has felt some dyspnea with some of them. Some of them of occurred when she is lying down but she would not say the majority of them marked. They seem to be random and nonexertional and with no other obvious triggers. She has had a metal taste in her mouth with it before. She has had discomfort in her neck and her left arm with them before. None of this is consistent. With one of the episodes of palpitations she became lightheaded but she has had no syncopal episodes. No history of DVT or PE. She is a non- smoker. No recent immobilization, long travel, hospitalization, or surgery. No history of cancer that she knows of. CVD Risk Factors: Positive for Hypercholesterolemia; Negative for Hypertension, Diabetes, Family History 1' </=55 or Smoking PE Risk Factors: Negative for Recent Travel/Surgery, Recent Immobilization, Prior DVT or PE, Cancer or OCP + Smoking + >/=35 [facility] Medical History (Updated 07/21/23 @ 01:[address] Robert Schwartz MD) Hyperlipidemia Home Medications norethindrone 1 mg-ethinyl estradiol 35 mcg tablet 1 tab PO DAILY 09/28/20 [History Last Taken Unknown] pantoprazole 40 mg tablet,delayed release 40 mg PO DAILY #14 tabs 07/21/23 [Rx Last Taken Unknown] Allergy/AdvReac Type Severity Reaction Status Date / Time No Known Allergies Allergy Verified 07/20/23 22:28 Social History Smoking Status: Never smoker alcohol intake: never caffeine: Yes Type: coffee Number of servings: 6 ROS ROS ED Constitutional Constitutional ED: Denies chills or fever(s) Eyes Eyes: Denies change in vision or diplopia ENT ENT ED: Denies rhinorrhea or sore throat Cardiovascular Cardiovascular: Reports chest pain, palpitations, racing heartbeat and radiating jaw, neck or arm pain; Denies orthopnea Respiratory/Chest Respiratory/Chest: Reports dyspnea; Denies cough or orthopnea Gastrointestinal Gastrointestinal: Denies abdominal pain, diarrhea, nausea or vomiting Genitourinary Genitourinary ED: Denies dysuria or hematuria Musculoskeletal Musculoskeletal: Denies back pain or neck pain Integumentary Denies abscess or rash Neurologic Neurologic: Denies headache(s), paresthesias or weakness Psychiatric Psychiatric: Denies suicidal ideation or suicidal thoughts EXAM Physical Exam Const Vital Signs: 07/20/23 22:26 07/20/23 22:26 07/20/23 22:59 Temperature 97.8 F Temperature Source Temporal Pulse Rate 122 H Respiratory Rate 16 Respiratory Effort Normal Non-Labored Blood Pressure 186/110 H Blood Pressure Mean 135 Pulse Ox 99 99 Oxygen Delivery Method Room Air Room Air 07/20/23 23:26 07/21/23 00:26 07/21/23 01:26 Temperature Temperature Source Pulse Rate 82 85 81 Respiratory Rate 16 Respiratory Effort Blood Pressure 128/86 H Blood Pressure Mean 100 Pulse Ox 98 Oxygen Delivery Method Room Air Positive well nourished and well developed General Appearance ED: well developed and NAD HEENT Reports moist mucous membranes normocephalic and atraumatic Eyes PERRL and EOMs intact bilaterally Neck full ROM and supple Resp normal respiratory effort and clear to auscultation bilaterally Cardio regular rate, regular rhythm and no murmurs Rate: tachycardic GI non-tender and non-distended Auscultation: normoactive bowel sounds Palpation: soft Back/Spine no CVA tenderness General Back: other FROM Extremity normal to inspection General Extremety ED: Negative for edema, pulses abnormal or tenderness General Extremity: Negative for edema or pulses abnormal Neuro oriented x3, CN's II-XII intact bilaterally and no sensory deficits noted Sensorium / Orientation: awake and alert Motor Exam: strength 5/5 throughout Skin no rashes or lesions noted and no wounds Heart Score History: Moderately Suspicious Age: </= 45 years Risk Factors: 1 or 2 Risk Factors Score: 2 MDM MDM MDM Narrative Medical decision making narrative: Differential here includes cardiac discomfort but also esophageal etiologies, less likely to be pulmonary embolus but she has a resting tachycardia, so that was considered as well. Her blood pressure is elevated upon initial arrival 186/110, certainly undiagnosed blood pressure could cause the symptoms if acutely elevated, however her symptoms are intermittent and relatively frequent in the last couple weeks. Since she had an episode just prior to arrival, when her initial troponin returned negative, we performed a delta measurement, in addition to a D-dimer, EKG, chest x-ray, 2 views of my interpretation are normal and the rest of this is also normal. She had no other symptoms while she was here. Her heart rate normalized without specific treatment, 90s by the time we even obtain the EKG which was before the other testing. She did not have further tachycardia. Her blood pressure is 128/86 on reevaluation without specific treatment. Unknown if she is having dysrhythmias which is also in the differential. She may need to have a Holter monitor as an outpatient. Given her negative workup right now, I am recommending a PPI daily for 2 weeks to see how that goes, and given her dose now she is comfortable with that plan of following up. Patient does not have a PCP to follow-up with, states I am getting one and states she saw Dr. Benitez in the past for palpitations. Given that she is established with cardiology, I recommend following up with them, and I had respiratory placed a Holter on her prior to leaving the ER since she has been having relatively frequent episodes of this in the past couple weeks. Lab Data Attestation: I reviewed the patient's lab results. Labs: Laboratory Results - last 24 hr 07/20/23 07/21/23 22:56 00:58 WBC 9.2 RBC 4.50 Hgb 13.5 Hct 40.3 MCV 89.6 MCH 30.0 MCHC 33.5 RDW Std Deviation 39.1 RDW Coeff of Abdirahman 12.1 Plt Count 217 MPV 10.8 Immature Gran % (Auto) 0.300 Neut % (Auto) 63.4 Lymph % (Auto) 29.0 [place] % (Auto) 5.3 Eos % (Auto) 1.5 Baso % (Auto) 0.5 Absolute Neuts (auto) 5.8 Absolute Lymphs (auto) 2.66 Nucleated RBC % 0 D-Dimer Quant (PE/DVT) < 0.27 L Sodium 139 Potassium 3.2 L Chloride 107 Carbon Dioxide 24.0 Anion Gap 8 BUN 16 Creatinine 1.20 H Estim Creat Clear Calc 59.73 Est GFR (MDRD) Af Amer 68 Est GFR (MDRD) Non-Af 56 L BUN/Creatinine Ratio 13.3 Glucose 111 H Calcium 9.3 Troponin I High Sens 4 5 Radiography Diagnostic Testing: Clinical Impression(s) from Imaging Studies Chest X-Ray 07/20/23 23:15 IMPRESSION: No acute cardiopulmonary disease Electronically Signed: Ga Suarez MD at 23:50 EST , Rhythm Strip Rhythm Strip: Sinus Rhythm Rate: 90 Ectopy: None EKG Initial EKG: Attestation: I personally reviewed and interpreted this EKG as follows: Interpretation: Sinus Rhythm and No Acute Injury Pattern Comments: nml EKG Discharge Plan Triage Chief Complaint: Chest Pain ED Provider: Robert Schwartz Dx/Rx/DC Orders Clinical Impression: Intermittent palpitations, Chest pain, unspecified, Episode of hypertension Instructions: ED Chest Pain, Uncertain Cause, ED Palpitations Prescriptions: New pantoprazole 40 mg tablet,delayed release (DR/EC) 40 mg PO DAILY Qty: 14 0RF No Action norethindrone-ethin estradiol 1-35 mg-mcg tablet 1 tab PO DAILY Patient Comments: TAKE 1 TABLET BY MOUTH ONCE DAILY SKIP PLACEBOS Primary Care Provider: Care Physician,No Primary Referrals: Hermes Benitez MD [Med Staff - Active Staff] - 3-5 Days ((to be seen after Holter monitor turned in)) Disposition Disposition: Home, Self Care
[2023-07-20 22:59] VITALS: O2SAT 99
[2023-07-20 23:01] LABS: Absolute Lymphocyte Count 2.66 X10^3/uL (0.83-4.51); Absolute Neutrophil Count 5.8 X10^3/uL (2.0-7.7); Basophil# 0.05 X10^3/uL; Basophil% 0.5 % (0-1); Eosinophil# 0.14 X10^3/uL; Eosinophils% 1.5 % (0-5); Hematocrit 40.3 % (37-47); Hemoglobin 13.5 g/dL (12.0-15.0); Lymphocyte # 2.66 X10^3/ul (0.83-4.51); Mean Corp Hgb Conc 33.5 g/dL (32-36); Mean Corpuscular Volume 89.6 fL (81-99); Mean Platelet Vol. 10.8 fl (6.2-12.0); Monocyte# 0.49 X10^3/uL; Monocyte% 5.3 % (0-10); NRBC Flagged by Analyzer 0 % (0-5); Neutrophil # 5.81 X10^3/uL (2.7-7.7); Neutrophil % 63.4 % (47-70); Platelet Count 217 K/mm3 (150-450); RBC Distribution Width CV 12.1 % (11.6-14.6); RBC Distribution Width SD 39.1 fl (35.1-43.9); White Blood Count 9.2 K/mm3 (4.4-11.0)
[2023-07-20 23:13] LABS: D-Dimer Quantitative (DVT/PE) < 0.27 FEU/ug/m (0.27-0.49)
--- NOTE | 2023-07-20 23:15 | RAD_ITS ---
EXAM: XR Chest 2 Views INDICATION: Female, 28 years old. Chest pain TECHNIQUE: PA and lateral views COMPARISON: None FINDINGS: DEVICES: None LUNGS: No confluent air space opacity. No concerning pulmonary nodule. No pleural effusion or pneumothorax. MEDIASTINUM: Cardiac and mediastinal silhouettes are within normal limits. No central pulmonary vascular congestion. . SKELETAL STRUCTURES: No acute skeletal abnormality. UPPER ABDOMEN: Unremarkable RAD/Chest PA and Lateral IMPRESSION: No acute cardiopulmonary disease Electronically Signed: Ga Suarez MD at 23:50 EST ,
[2023-07-20 23:19] LABS: Anion Gap 8 (5-15); BUN 16 mg/dL (7-18); BUN/Creat Ratio 13.3 RATIO (10-20); Calcium,Total 9.3 mg/dL (8.5-10.1); Chloride 107 mmol/L (98-107); EST Glomerular Filtration Rate 56 mL/min (>60); Est Glom Filt Rate - Afr Amer 68 mL/min (>60); Estimated Creatinine Clearance 59.73 ml/min; Glucose 111 mg/dL (74-106); Potassium 3.2 mmol/L (3.5-5.1); Sodium Level 139 mmol/L (136-145); Troponin-I HS (w/2H Reflex) 4 pg/mL (3.0-54.0)
[2023-07-20 23:26] VITALS: PULSE 82
[2023-07-21 00:26] VITALS: PULSE 85
[2023-07-21] MEDS: Pantoprazole Sodium 40 MG Tablet PO (00:35)
[2023-07-21 00:58] LABS: Reflex Troponin-HS? (from REC) Y
[2023-07-21 01:26] VITALS: BP 128/86; PULSE 81; RESP 16; O2SAT 98
[2023-07-21 01:29] LABS: Troponin-I HS 5 pg/mL (3.0-54.0)
[2023-07-21 02:11] VITALS: PULSE 82; RESP 16; O2SAT 98
== END 2023-07-21 02:13 | disposition home or self-care (01) ==
PROVIDERS: Emergency Provider Emergency Medicine; Visit Provider Emergency Medicine
DX: R00.2 Palpitations (principal); R07.9 Chest pain, unspecified; I10 Essential (primary) hypertension
CPT/HCPCS: 71046; 80048; 84484; 85025; 85379; 93005; 99284; A4216

== ENCOUNTER → 2023-07-21 | Outpatient (CLI) | payer BC, SELFPAY | END | disposition home or self-care (01) | LOC: PSN 01:39 | PROVIDERS: Referring Provider Emergency Medicine; Visit Provider Emergency Medicine | DX: R00.2 Palpitations (principal) | CPT/HCPCS: 93225; 93226 ==